=== PATIENT | female | born 1955 | race African-American/Black ===

== ENCOUNTER → 2017-12-23 | Outpatient (CLI) | payer BC ==
[~2017-12-23] VITALS: Ht 167.6 cm; Wt 114.3 kg
[~2017-12-23] MED LIST: ADVIL200 M1 PO; BENGAY113 GM TP; FISH OIL CONCE1 EAC1 PO; PREDNISONE20 MG PO; PROAIR HFA8.5 GM IH; TESSALON PERLE100 MG PO; TYLENOL EXTRA500 MG PO; VITAMIN D-3 401 EACH PO; ZITHROMAX Z-PA250 MG PO
== END | disposition home or self-care (01) ==
LOC: AMB 10:07
PROC: 0DBL8ZX Excision of Transverse Colon, Via Natural or Artificial Opening Endoscopic, Diagnostic (ICD-10-PCS; principal; 2017-12-23)
DX: Z12.11 Encounter for screening for malignant neoplasm of colon (principal); D12.3 Benign neoplasm of transverse colon; K64.8 Other hemorrhoids; Z87.891 Personal history of nicotine dependence
CPT/HCPCS: 88305